=== PATIENT | female | born 1995 | race Caucasian/White ===

== ENCOUNTER 2021-06-29 11:18 | Inpatient (IN) ==
[2021-06-29 12:15] LABS: Basophils % 0.4 %; Eosinophils # 0.1 K/mcL (0.0-0.6); Eosinophils % 1.4 %; Hematocrit 43.5 % (35.3-44.9); Immature Granulocytes % 0.3 % (0-4); Lymphocytes # 2.7 K/mcL (0.6-4.6); Lymphocytes % 26.2 %; Mean Corpuscular HGB Conc 34.5 g/dL (31.6-35.5); Mean Corpuscular Hemoglobin 29.1 pg (28.0-33.3); Mean Corpuscular Volume 84.5 fL (83.0-100.0); Mean Platelet Volume 8.8 fL (9.4-12.4); Monocytes # 0.5 K/mcL (0.0-1.3); Monocytes % 5.2 %; Neutrophils # 6.9 K/mcL (1.6-8.9); Platelet Count 320 K/mcL (140-400); Red Blood Count 5.15 M/mcL (3.82-4.97); Red Cell Distribution Width 12.5 % (11.5-14.5); Segmented Neutrophils % 66.5 %; White Blood Count 10.4 K/mcL (4.3-11.1)
[2021-06-29 12:47] LABS: Bilirubin,Urine Negative (Negative); Blood,Urine Negative (Negative); Clarity,Urine Clear (Clear); Color,Urine Light-Yellow (Yellow); Glucose,Urine (UA) Normal (Normal); Ketones,Urine Negative (Negative); Leukocyte Esterase,Urine Negative (Negative); Nitrite,Urine Negative (Negative); PH,Urine 6.5 pH Units (5.0-8.0); Protein,Urine Trace mg/dL (Neg-Trace); Specific Gravity,Urine 1.021 (1.010-1.025); Urobilinogen,Urine Normal (Normal)
[2021-06-29 12:52] LABS: Acetaminophen < 10 mcg/mL (10-20); Alanine Aminotransferase 40 Units/L (7-52); Albumin 4.9 g/dL (3.5-5.7); Albumin/Globulin Ratio 1.5 (1.1-2.2); Alkaline Phosphatase 73 Units/L (34-104); Aspartate Amino Transferase 21 Units/L (13-39); BUN/Creatinine Ratio 21 (6-26); Bilirubin,Indirect 0.6 mg/dL (0.0-1.0); Bilirubin,Total 0.6 mg/dL (0.3-1.0); Blood Urea Nitrogen 14 mg/dL (6-20); Calcium 10.9 mg/dL (8.6-10.3); Carbon Dioxide 27 mEq/L (23-29); Chloride 99 mEq/L (98-107); Ethanol < 10 mg/dL (Less than 10); Globulin 3.3 g/dL (2.4-3.5); Glucose 106 mg/dL (70-105); Osmolality,Calculated 285 (280-300); Potassium 3.5 mEq/L (3.5-5.1); Salicylate < 2.5 mg/dL (15.0-30.0); Sodium 137 mEq/L (136-145); Total Protein 8.2 g/dL (6.4-8.9); eGFR For African Americans > 60 (> 60); eGFR For Non-African Americans > 60 (> 60)
[2021-06-29 13:21] LABS: Amphetamine Screen,Urine Negative ng/mL (Cutoff=1000); Barbiturate Screen,Urine Negative ng/mL (Cutoff=200); Benzodiazepines Screen,Urine Negative ng/mL (Cutoff=200); Cannabinoid Screen,Urine Negative ng/mL (Cutoff = 50); Cocaine Screen,Urine Negative ng/mL (Cutoff= 300); Opiate Screen,Urine Negative ng/mL (Cutoff=300); Phencyclidine Screen,Urine Negative ng/mL (Cutoff=25)
[2021-06-29 17:24] LABS: Influenza A PCR Negative (Negative); Influenza B PCR Negative (Negative); Resp. Syncytial Virus PCR Negative (Negative)
[2021-06-29 17:36] LABS: SARS-CoV-2 by PCR (In House) Negative (Negative)
[2021-06-29] MEDS ORDERED: traZODone 50 MG TABLET PO PRN (19:32)
[2021-06-29] MEDS ORDERED: Acetaminophen 325 MG TABLET PO PRN (19:32)
[2021-06-29] MEDS ORDERED: *HR* LORazepam 2 MG/ML VIAL IM PRN (19:32)
[2021-06-29] MEDS ORDERED: haloperidoL 5 MG TABLET PO PRN (19:32)
[2021-06-29] MEDS ORDERED: *HR* LORazepam 1 MG TABLET PO PRN (19:32)
[2021-06-29] MEDS ORDERED: Haloperidol Lactate 5 MG/ML VIAL IM PRN (19:32)
[2021-06-29] MEDS: hydrOXYzine pamoate 25 MG CAPSULE PO PRN (21:53)
[2021-06-30] MEDS: lisinopriL 10 MG TABLET PO SCH (10:06)
[2021-06-30] MEDS: hydroCHLOROthiazide 25 MG TABLET PO SCH (10:07)
[2021-06-30] MEDS: Loratadine 10 MG TABLET PO SCH (10:07)
[2021-06-30] MEDS: Fluticasone Propionate Nasal 50 MCG/SPRAY BOTTLE NS SCH (11:07)
[2021-06-30] MEDS ORDERED: Mag Hydrox/Al Hydrox/Simeth 30 ML UDC PO PRN (13:13)
[2021-06-30] MEDS ORDERED: MOM Conc 10 ML UD.LIQ PO PRN (13:13)
[2021-06-30 21:17] VITALS: PULSE 111
[2021-06-30] MEDS: hydrOXYzine pamoate 25 MG CAPSULE PO PRN (21:35)
[2021-07-01] MEDS: Loratadine 10 MG TABLET PO SCH (08:53)
[2021-07-01] MEDS: Fluticasone Propionate Nasal 50 MCG/SPRAY BOTTLE NS SCH (08:53)
[2021-07-01] MEDS: lisinopriL 10 MG TABLET PO SCH (08:54)
[2021-07-01] MEDS: hydroCHLOROthiazide 25 MG TABLET PO SCH (08:54)
[2021-07-01 09:05] VITALS: BP 131/90; TEMP 99; O2SAT 100
== END 2021-07-01 16:55 | disposition home or self-care (01) | DRG 885 ==
LOC: EMEROOARM 11:18 → 1ANU 18:54
PROVIDERS: ADMIT Psychiatry & Neurology Psychiatry; ATTEND Psychiatry & Neurology Psychiatry